=== PATIENT | male | born 1985 | race Caucasian/White ===

== ENCOUNTER 2024-04-14 20:07 | Emergency (ER) | payer BC ==
[2024-04-14] MEDS: Carbamide Peroxide 6.5% Otic Soln 15 ML Bottle EARBOTH ONE (21:12)
== END 2024-04-14 21:15 | disposition home or self-care (01) ==
LOC: CC.ED 20:07
DX: H61.23 Impacted cerumen, bilateral (principal); F17.210 Nicotine dependence, cigarettes, uncomplicated
CPT/HCPCS: 69210; 99282-25; A9270-GY